=== PATIENT | female | born 1955 | race Caucasian/White ===

== ENCOUNTER 2019-03-10 21:34 | Inpatient (IN) | payer MEDICARE ==
[~2019-03-10] VITALS: Ht 165.1 cm; Wt 54.4 kg
[2019-03-10] MEDS ORDERED: NACL 0.9% 1,000 ML IV SCH (21:36)
--- NOTE | 2019-03-10 21:36 | NUR ---
2133-- PT BIBA TX TO ER BED 8
[2019-03-10 21:37] VITALS: BP 137/65
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
[2019-03-10] MEDS ORDERED: cefTRIAXone 1,000 MG in DEXT 5% MINI-BAG PLUS 50 ML IV ONE (21:40)
--- NOTE | 2019-03-10 22:00 | NUR ---
PT AOX3 (NAME, TIME, PLACE), REMAINS CONFUSED AT THIS TIME. DENIES ANY PAIN. ALL NEEDS MET AT THIS TIME.
[2019-03-10 22:06] LABS: BASOPHILS % (AUTO) 0.2 % (0.0-2.0); EOSINOPHILS % (AUTO) 0.3 % (0.0-4.0); HEMATOCRIT 30.8 % (36-48); HEMOGLOBIN 10.1 g/dL (12.0-16.0); LYMPHOCYTES # (AUTO) 0.7 K/uL (2.5-16.5); LYMPHOCYTES % (AUTO) 8.7 % (20.5-51.1); MEAN CORPUSCULAR HEMOGLOBIN 29 pg (27-31); MEAN CORPUSCULAR HGB CONC 33 g/dL (33-37); MEAN CORPUSCULAR VOLUME 87.5 fL (80-94); MONOCYTES # (AUTO) 0.7 K/uL (0.8-1.0); MONOCYTES % (AUTO) 8.3 % (1.7-9.3); NEUTROPHILS # (AUTO) 6.6 K/uL (1.8-7.7); NEUTROPHILS % (AUTO) 82.5 % (42.2-75.2); PLATELET COUNT (AUTO) 410 K/uL (140-450); RED BLOOD CELL COUNT(AUTO) 3.52 MIL/uL (4.20-5.40); RED CELL DISTRIBUTION WIDTH 15.3 % (11.6-13.7)
[2019-03-10] MEDS ORDERED: cefTRIAXone 1,000 MG VIAL ONE (22:13)
[2019-03-10 22:28] LABS: APPEARANCE,URINE CLEAR (CLEAR); BILIRUBIN,URINE NEGATIVE (NEGATIVE); BLOOD, URINE 1+ (NEGATIVE); COLOR,URINE YELLOW (YELLOW); LEUKOCYTE ESTERASE ,URINE TRACE (NEGATIVE); NITRITE, URINE NEGATIVE (NEGATIVE); UGLUCOSE NEGATIVE (NEGATIVE)
[2019-03-10 22:30] LABS: ANION GAP 9.2 (8-16); CARBON DIOXIDE 29.2 mmol/L (21-32); CREATININE 0.5 mg/dL (0.6-1.3); POTASSIUM 3.4 mmol/L (3.5-5.1)
--- NOTE | 2019-03-10 22:38 | NUR ---
PT TAKEN TO CT AT THIS TIME
[2019-03-10 22:45] LABS: ALBUMIN 2.8 g/dL (3.4-5.0); TOTAL BILIRUBIN 0.2 mg/dL (0.0-1.0)
[2019-03-10 22:47] LABS: BARBITURATE, URINE NEG. ng/ml (NEG <=200); BENZODIAZEPINE, URINE NEG. ng/mL (NEG <=200); CANNABINOID, URINE NEG. ng/mL (NEG <=50); COCAINE, URINE NEG. ng/mL (NEG <=300); OPIATE, URINE NEG. ng/mL (NEG <=2000); PHENCYCLIDINE SCREEN,URINE NEG. ng/mL (NEG <=25)
--- NOTE | 2019-03-10 22:47 | NUR ---
PT BACK FROM CT
[2019-03-10 22:57] LABS: WBC,URINE 0-5 /HPF (0-5)
--- NOTE | 2019-03-10 22:57 | NUR ---
PT LAYING IN BED, RR EVEN AND UNLABORED. VSS, DENIES ANY PAIN. REMAINS MILDLY CONFUSED BUT ABLE TO REORIENT. ALL NEEDS MET AT THIS TIME.
--- NOTE | 2019-03-10 23:14 | NUR ---
DR. FREEMAN BEDSIDE EVALUATING PT
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
--- NOTE | 2019-03-10 23:25 | NUR ---
RECEIVED CALL FROM PT'S LANDLORD OSIEL [phone], STATED THAT HE IS UNABLE TO TAKE PT BACK AT THIS TIME, WAS MADE AWARE THAT PT'S [facility] IS UNABLE TO WARRANTY CLERK PT UNTIL MORNING, WAS GIVEN PT'S DAUGHTER MARIMAR DOS SANTOS'S CONTACT. DR FREEMAN MADE AWARE.
[2019-03-10] MEDS ORDERED: LORazepam 2 MG/ML VIAL IVP ONE (23:40)
--- NOTE | 2019-03-11 00:05 | NUR ---
PER STOPPER MAKER, PT'S DAUGHTER MARIMAR DOS SANTOS [phone] STATED THAT SHE IS UNABLE TO SUPERINTENDENT RECREATION PT AT THIS TIME.
--- NOTE | 2019-03-11 00:28 | NUR ---
PT LAYING IN BED, RR EVEN AND UNLABORED. VSS. ALL NEEDS MET AT THIS TIME.
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
[2019-03-11] MEDS ORDERED: LORazepam 2 MG/ML VIAL IVP PRN (01:40)
[2019-03-11] MEDS ORDERED: ONDANSETRON 4 MG/2 ML VIAL IVP PRN (01:40)
--- NOTE | 2019-03-11 02:01 | NUR ---
PT LAYING IN BED, RR EVEN AND UNLABORED. VSS. ALL NEEDS MET AT THIS TIME.
--- NOTE | 2019-03-11 02:14 | NUR ---
Patient will be admitted to care of DR. COHEN. Admited to MEDSURG OBSERVATION. Will go to room 110B. Belongings list completed. Report to TIMOTHY GALVEZ AND VIDHI GALVEZ.
[2019-03-11 02:20] VITALS: BP 110/82
--- NOTE | 2019-03-11 02:20 | NUR ---
RECIEVED PATIENT FROM ER PER CHERYL .AWAKE ,ALERT .NO RESPIRATORY DISTRESS NOTED.WITH SALINE HEPLOCK ON LEFT AC G20 INTACT AND PATENT ,WALKABLE TO BED ,WITH STABLE V/S ,WITH REDNESS ON SACRAL AREA AND WITH REDNESS AND SWELLING ON LEFT LOWER LEG.MRSA SPECIMEN COLLECTED AND SENT TO LAB.PUT ON FALL PRECAUTION .ADMISSION ASSESSMENT DONE .SANDWICH SERVED .CALL LIGHT WITHIN REACH.WILL CONTINUE TO MONITOR.
--- NOTE | 2019-03-11 04:00 | NUR ---
ASLEEP. NO S/S OF ANY DISCOMFORT NOTED.
--- NOTE | 2019-03-11 06:30 | NUR ---
FERNANDO CARTAGENA OF PT CALLED. TELLING THAT PT WAS ACTING DIFFERENTLY AND THROWING THINGS AT HOME. REQUESTING TO HAVE PT ON HOLD FOR 72 HRS . BUT TOLD HIM THAT PT HAS BEEN COOPERATIVE DURING ETIME SHE WAS ADMITTED ON THE UNIT.
--- NOTE | 2019-03-11 07:20 | NUR ---
SARAH ,NURSE PRACTITIONER OF PT CALLED. AND SAYING THAT PT HAS CERVICAL CA STG 4 METS TO THE BACK. HAD X1 RADIATION FOR LESIONS AND SUPPOSED TO HAVE ANOTHER CONSULT NEXT WWEK FOR RADIATION. TWO WEEKS AGO HAD COLONOSCOPY IN [place] ALSO. SHE IS REQUESTING IF PT CAN HAVE A CM /SS TO BE TRANSFERRED TO HIGHER LEVEL OF CARE. WILL ENDORSE TO AM NURSE.
--- NOTE | 2019-03-11 07:28 | NUR ---
ENDORSED PT IN STABLE CONDITION TO AM NURSE.
--- NOTE | 2019-03-11 07:29 | NUR ---
RECEIVED REPORT FROM CARAVAN PARK AND CAMPING GROUND MANAGER NURSE. PATIENT SITTING IN BED WATCHING TV. ABLE TO AMBULATE TO BATHROOM AND BACK TO BED. AAOX4, CALM, COOPERATIVE, SKIN COLOR APPROPRIATE TO ETHNICITY, WARM TO TOUCH. SKIN INTACT. PULLED OUT IV SITE ON LEFT AC. WILL INSERT NEW IV LINE LATER. RESPIRATIONS EVEN, UNLABORED, ON ROOM AIR. ABDOMEN SOFT, NON-DISTENDED. REVIEWED PLAN OF CARE WITH PATIENT. PATIENT VERBALIZED UNDERSTANDING. SAFETY MEASURES IN PLACE, CALL LIGHT WITHIN REACH. WILL CONTINUE TO MONITOR.
[2019-03-11 08:00] VITALS: BP 119/54
--- NOTE | 2019-03-11 08:10 | NUR ---
PATIENT HAS BEEN SCREENED AND CATEGORIZED MODERATE NUTRITION RISK. PATIENT WILL BE SEEN WITHIN 3-5 DAYS OF ADMISSION. 03/13/19EMELIA ORELLANA [address]
--- NOTE | 2019-03-11 08:45 | NUR ---
DR. COHEN AT BEDSIDE REVIEWING PLAN OF CARE WITH PATIENT. WILL CONTINUE TO MONITOR.
--- NOTE | 2019-03-11 11:27 | NUR ---
SPOKE TO PEPPER PEÑALOZA OF [facility] AT [phone], MADE HER AWARE REGARDING DC PLANNING TO SNF. SHE STATED THAT THIS IS MORE OF A NURSING HOME CASE THAN MEDICAL NECESSITY. WILL FAX ORDERS. SHE ALSO GAVE ME THE LISTS OF FACILITIES THEY ARE CONTRACTED IF PATIENT QUALIFIES.
--- NOTE | 2019-03-11 11:45 | NUR ---
PATIENT WALKING AROUND MST HALLWAYS WITH STEADY GAIT. WILL CONTINUE TO MONITOR.
--- NOTE | 2019-03-11 12:59 | NUR ---
PATIENT SITTING IN BED WITH LUNCH TRAY IN FRONT. INTERMITTENT CONFUSION, DIALED DAUGHTER'S NUMBER FOR PATIENT. WILL CONTINUE TO MONITOR.
--- NOTE | 2019-03-11 13:46 | NUR ---
ELEVATOR INSPECTOR ASSISTED PATIENT TO SHOWER AND BACK TO BED. WILL CONTINUE TO MONITOR.
--- NOTE | 2019-03-11 14:35 | NUR ---
PATIENT DAUGHTER, WAREHOUSE PRODUCTION WORKER AT BEDSIDE TALKING REGARDING PLAN FOR PATIENT. WILL CONTINUE TO MONITOR.
[2019-03-11 16:00] VITALS: BP 121/56
--- NOTE | 2019-03-11 16:30 | NUR ---
PATIENT SITTING IN BED TALKING WITH DAUGHTER AT BEDSIDE AND WORKING ON A PUZZLE. NO DISTRESS NOTED. DENIES ANY PAIN. CONDITION UNCHANGED. WILL CONTINUE TO MONITOR.
--- NOTE | 2019-03-11 18:34 | NUR ---
PATIENT SITTING IN BED WORKING ON A PUZZLE, TALKING WITH SISTER AT BEDSIDE. WILL CONTINUE TO MONITOR.
--- NOTE | 2019-03-11 19:18 | NUR ---
RECIEVED PATIENT AWAKE AND ORIENTED ,WALKABLE, NO ANY DISCOMFORT NOTED AT THIS TIME. FAMILY IS ON BEDSIDE. PLAN OF CARE DISCUSSED AND PT. VERBALIZED UNDERSTANDING. BED IN LOW POSITION ,SIDERAILS UP ,CALL LIGHT WITHIN REACH. WILL CONTINUE TO MONITOR.
--- NOTE | 2019-03-11 19:18 | NUR ---
GAVE REPORT TO SILVERWARE SUPERVISOR NURSE FOR CONTINUITY OF CARE. PATIENT IN STABLE CONDITION.
--- NOTE | 2019-03-11 21:00 | NUR ---
PATIENT,S DAUGHTER EXPRESSED DISAPPOINTMENT ABOUT THE PATIENT .THE DAUGHTER SAID SHE HAVE NOT TAKE CARE HER MOM ANYMORE . THE OTHER STAFF NURSE WITNESSED THE INCIDENT. PATIENT IS CRYING ON THAT TIME. CALM DOWN THE PATIENT AND MAKE HER SECURE ON BED ; CALL LIGHT WITHIN REACH .WILL VISIT THE PATIENT FROM NOW AND THEN.
--- NOTE | 2019-03-11 22:00 | NUR ---
WALKS IN THE HALLWAY ACCOMPANIES BY PRINCE .
[2019-03-11 23:50] VITALS: BP 142/74
--- NOTE | 2019-03-12 | NUR ---
PATIENT TOOK OFF THE PANTS . WALKING AROUND THE ROOM. CONFUSE AND REQUESTING TO GO HOME. COMFORT PATIENT. DRESS PATIENT PROPERLY. WILL CONTINUE TO MONITOR.
--- NOTE | 2019-03-12 02:00 | NUR ---
PATIENT STILL AWAKE ON BED. REQUESTED FOR FOOD .PROVIDED SANDWICH TOLERATED WELL.
--- NOTE | 2019-03-12 03:00 | NUR ---
PATIENT SLEEPING AT THIS TIME. NO DISCOMFORT NOTED.
--- NOTE | 2019-03-12 05:00 | NUR ---
PATIENT RESTING ON BED.NO DISCOMFORT NOTED AT THIS TIME.
--- NOTE | 2019-03-12 06:00 | NUR ---
AMBULATED TO HALLWAY WITH ASSISTANE.
--- NOTE | 2019-03-12 07:25 | NUR ---
ENDORSED TO AM SHIFT NURSE FOR CONTINUITY OF CARE.
--- NOTE | 2019-03-12 07:26 | NUR ---
RECEIVED ENDORSEMENT FROM TUFTER. PATIENT IS AAOX4 WITH INTERMITTENT CONFUSION. RESPIRATIONS ARE EVEN AND UNLABORED ON ROOM AIR. PATIENT DENIES ANY PAIN AT THIS TIME. PLAN OF CARE WAS REVIEWED WITH PATIENT, PATIENT VERBALIZED UNDERSTANDING. SAFETY MEASURES IN PLACE, CALL LIGHT WITHIN REACH.
[2019-03-12 08:00] VITALS: BP 145/58
--- NOTE | 2019-03-12 09:15 | NUR ---
PATIENT IS AMBULATING AROUND UNIT. WALKED PATIENT BACK TO HER ROOM. NO OTHER NEEDS AT THIS TIME. WILL CONTINUE TO MONITOR.
--- NOTE | 2019-03-12 10:00 | NUR ---
DR. COHEN AT BEDSIDE REVIEWING PLAN OF CARE WITH PATIENT. WILL CONTINUE TO MONITOR.
--- NOTE | 2019-03-12 11:00 | NUR ---
ENDORSED PATIENT TO LENNY NAYAK FOR CONTINUITY OF CARE. PATIENT IN STABLE CONDITION.
--- NOTE | 2019-03-12 11:01 | NUR ---
RECEIVED REPORT FROM DAY SHIFT NURSE MADELINE FOR CONTINUITY OF CARE. PT IN STABLE CONDITION. ROOM AIR. CALL LIGHT AT BEDSIDE. PT VERBALIZED UNDERSTANDING HOW TO USE CALL LIGHT. BED IN LOW POSITION. WILL CONTINUE TO MONITOR.
--- NOTE | 2019-03-12 12:13 | NUR ---
PT WALKING AROUND TELE UNIT IN STABLE CONDITION. MOUNTER FLUTES AND PICCOLOS AT SIDE. WILL CONTINUE TO MONITOR.
[2019-03-12] MEDS: ACETAMINOPHEN 325 MG TAB PO PRN ×2 (13:02→21:01)
--- NOTE | 2019-03-12 13:04 | NUR ---
GAVE PRN MEDICATION TYLENOL PER PT REQUEST FOR PAIN LOCATED IN LEFT HIP. CALL LIGHT AT BEDSIDE. BED IN LOW POSITION. WILL CONTINUE TO MONITOR.
--- NOTE | 2019-03-12 13:13 | NUR ---
PEPPER PEÑALOZA FROM [facility] CALLED AND UPDATED PEPPER ON PATIENT STATUS THAT STILL WAITING FOR PSYCH EVAL BY DR OLIVO
--- NOTE | 2019-03-12 13:19 | NUR ---
PEPPER PEÑALOZA [facility] [phone]
--- NOTE | 2019-03-12 15:05 | NUR ---
GAVE PT PEANUT BUTTER AND CRACKERS PER PT REQUEST. PT IN STABLE CONDITION. WILL CONTINUE TO MONITOR.
[2019-03-12 16:00] VITALS: BP 126/60
--- NOTE | 2019-03-12 17:51 | NUR ---
[facility]man Note: Late entry for 03/11/19: I met with patient and patient's daughter Ayala Hawthorne at bedside. They both stated it is not safe for patient to return home upon discharge. Psych evaluation pending. Patient uses a walker to ambulate at home and has a wheelchair and hospital bed that she does not use. Prior to hospital admission patient was living with her roommate/landlord Yonathan in Yonathan's home. Both patient and Ayala stated Yonathan does not want patient to return to his home upon discharge. Patient reported she receives about $1,800 a month from [employer] and pension. Ayala stated she will bring patient's Advance Directive to our hospital. Patient reported she applied for Medi-Raheel in the past and did not qualify at that time due to high income. Patient has not been at a snf before. Ayala inquired if patient could be transferred to a snf upon discharge. I explained to her the difference between skilled and mcc placement. I also explained to her that if patient was to require long term care pharmacist placement she would have to have Medi-Raheel coverage. She verbalized understanding. Ayala stated patient was going to have a new insurance as of April 12, 2019 and was informed by patient's pcp's (,[facility] [phone]) office staff informed her is no longer patient's pcp. Ayala stated she is concern patient does not have a pcp at this time. I offered to call 's office to obtain clarification. She thanked me for my assistance. Ayala reported she has been speaking with CHRIS Vides from [facility] regarding hospice services for patient. [employer] and/or [employer] will follow up as needed. I called and spoke with Meaghan from 's office, she confirmed is still patient's pcp.
--- NOTE | 2019-03-12 17:58 | NUR ---
ASSISTED PT WITH CLEANING AFTER URINATING AND CHANGING SHEETS ON BED. PT IN STABLE CONDITION. BED IN LOW POSITION. CALL LIGHT AT BEDSIDE. WILL CONTINUE TO MONITOR.
--- NOTE | 2019-03-12 19:13 | NUR ---
GAVE REPORT TO SECURITY ASSURANCE SPECIALIST NURSE RAJWINDER FOR CONTINUITY OF CARE. PT IN STABLE CONDITION.
--- NOTE | 2019-03-12 19:13 | NUR ---
REPORT RECEIVED FROM MALINI GALVEZ DAYSHIFT NURSE AT BEDSIDE FOR CONTINUITY OF CARE, PT IN STABLE CONDITION.
--- NOTE | 2019-03-12 20:00 | NUR ---
PT IN BED AOX3NO C/O VOICED AT THIS TIME, ALL REQUESTED NEEDS ATTENDED. V/S FOLLOWS T 99.0 P 93 R 18 B/P 122/57 02 97% ON ROOM AIR.
--- NOTE | 2019-03-12 21:00 | NUR ---
PT NOTED WITH LEFT LOWER LEG SWELLING WITH +1 PITTING EDEMA. PT LEG WAS ELEVATED. PT C/O OF MILD PAIN AND WAS GIVEN TYLEONOL 650MG AND REMINDED TO STAY IN BED AND KEEP LEG ELEVATED. PT VERBALIZED UNDERSTANDING.
--- NOTE | 2019-03-12 21:30 | NUR ---
DR. CARTER COUNSELED PT AT BEDSIDE. BRIEF DISCUSSION ON PT AND PT ORIENTATION WITH DR. CARTER. HE ORDERED AN AMBIEN TO HELP PT SLEEP. PT HAS BEEN GETTING OUT OF BED AND WANTING TO WALK AROUND. PT REDIRECTED TO ROOM SEVERAL TIMES AND REMINDED THAT HE LEG NEEDS TO ELEVATED TO KEEP SWELLING DOWN. PT EXPRESSED CONCERN THAT OSIEL HER LANDLORD WOULD COME AND VISIT HER. PT DOES NOT WANT HIM TO VISIT HER, PT WAS REASSURED THAT IT IS AFTER VISITING HOURS AND THAT OSIEL WOULD NOT BE ALLOWED TO VISIT HER AT THIS TIME. PT EXPRESSED UNDERSTANDING AND WAS REDIRECTED TO HER ROOM.
--- NOTE | 2019-03-12 22:35 | NUR ---
SECURITY CALLED DUE TO PT BEING RESTLESS AND WANTING TO LEAVE. PT WAS REMINDED THAT SHE IS WAITING FOR PLACEMENT, BECAUSE SHE CANNOT GO BACK TO HER CURRENT LIVING SITUATION. PT VERBALIZED UNDERSTANDING, BUT DID NOT WANT TO RETURN TO HER ROOM. SPOKE WITH PT REGARDING HER CONCERNS AND SHE AGREED TO GO BACK TO HER ROOM , BUT SHE WAS ANXIOUS. NEW IV SITE PUT IN PT RIGHT WRIST 22 GUAGE. PT GIVEN ATIVAN IVP . ORDERED AMBIEN ALREADY GIVEN. WILL MONITOR PT FOR SLEEPLESSNESS AND ANXIETY.SITTER AT BEDSIDE.
[2019-03-12] MEDS: ZOLPIDEM 5 MG TAB PO PRN (23:03)
[2019-03-13] VITALS: BP 118/50
--- NOTE | 2019-03-13 | NUR ---
PT SLEEPING SOUNDLY NO S/S OF PAIN OR DISTRESS NOTED. V/S FOLLOWS T 97.7 P 88 R 18 B/P 118/50 02 97% ON ROOM AIR.
--- NOTE | 2019-03-13 07:11 | NUR ---
RECEIVED REPORT FROM REGULATORY COMPLIANCE OFFICER NURSE RAJWINDER FOR CONTINUITY OF CARE. PT IN STABLE CONDITION. RESPIRATIONS EVEN AND UNLABORED. ROOM AIR. IV INTACT AND PATENT. SAFETY MEASURES IN PLACE. CALL LIGHT AT BEDSIDE. BED IN LOW POSITION. WILL CONTINUE TO MONITOR.
[2019-03-13 08:00] VITALS: BP 136/65
--- NOTE | 2019-03-13 09:11 | NUR ---
OSIEL ([facility]) CALLED FOR INFORMATION ON PT. OSIEL WAS INFORMED PT IS FINE AND HE WOULD NEED TO CONTACT THE PT FAMILY FOR ANY OTHER INFORMATION.
--- NOTE | 2019-03-13 10:15 | NUR ---
PT GIVING SELF SPONGE BATH AT BEDSIDE PER PT REQUEST. STANDBY ASSISTANCE AT THIS TIME. PT IN STABLE CONDITION.
--- NOTE | 2019-03-13 12:08 | NUR ---
PT BEING WHEELED AROUND IN A [facility] AREA IN A WHEELCHAIR BY STUDENT NURSE KELSIE. PT IN STABLE CONDITION. WILL CONTINUE TO MONITOR.
[2019-03-13] MEDS: ACETAMINOPHEN 325 MG TAB PO PRN ×2 (13:01→20:19)
--- NOTE | 2019-03-13 13:15 | NUR ---
GAVE PT TYLENOL FOR HIP PAIN PER PT REQUEST. PT VERBALIZED SHE WILL TRY TO TAKE A NAP AT THIS TIME. WILL CONTINUE TO MONITOR. BED IN LOW POSITION. CALL LIGHT AT BEDSIDE.
[2019-03-13 16:00] VITALS: BP 121/68
--- NOTE | 2019-03-13 19:25 | NUR ---
RECEIVED REPORT FROM MALINI RN DAYSHIFT NURSE AT BEDSIDE FOR CONTINUITY OF CARE, PT IN STABLE CONDITION.
--- NOTE | 2019-03-13 19:25 | NUR ---
GAVE REPORT TO GROUND CREWMAN NURSE RAJWINDER FOR CONTINUITY OF CARE. PT IN STABLE CONDITION.
--- NOTE | 2019-03-13 20:03 | NUR ---
PT IN BED ALL FALLS PRECAUTIONS IN PLACE. PT AOX1-2. PT IS CONFUSED MISTAKING BHANU MAGANA FOR PHONE. PT REORIENTED AND EQUIPMENT LIKE THE CALL MAGANA AND PHONE. PT ENCOURAGED TO STAY AND BED AND KEEP LEFT LEG ELEVATED DUE TO SOME PITTING EDEMA IN LOWER LEG AND FOOT, PT VERBALIZED UNDERSTANDING AT THIS TIME. V/S FOLLOWS T 97.3 P 96 R 18 B/P 131/59 02 97% ON ROOM AIR.
[2019-03-13] MEDS: ZOLPIDEM 5 MG TAB PO PRN (20:20)
--- NOTE | 2019-03-13 20:42 | NUR ---
PT UPSET ABOUT THE PHONE NOT WORKING. PT USING [employer] PHONE. PT AGAIN REORIENTED TO EQUIPMENT. PT ASKED STAFF IF SHE CAN USE [employer] PERSONAL CELL PHONE, PT BECAME UPSET THAT SHE WAS NOT ALLOWED TO USE STAFF PHONE AND ASKED FOR SECURITY TO BE CALLED. SECURITY ARRIVED IN ROOM. PT WAS ON THE BED ASKING FOR HER MEDICATION, RN ASKED IF PT IF SHE IS FEELING ANXIOUS AND SHE SAID YES. ATIVAN IVP/PRN TO BE GIVEN.
--- NOTE | 2019-03-13 21:00 | NUR ---
PT GIVEN NEW IV SITE ON LEFT WRIST 20G. PT GIVEN IVP /PRN ATIVAN ORDERED FOR AGITATION.
--- NOTE | 2019-03-13 22:30 | NUR ---
PT IN BED ASLEEP ALL FALLS PRECAUTIONS OBSERVED, NO S/S OF PAIN OR DISTRESS NOTED.
[2019-03-14] VITALS: BP 128/60
--- NOTE | 2019-03-14 00:30 | NUR ---
PT IN BED SLEEPING SOUNDLY, NO S/S OF PAIN OR DISTRESS NOTED. ALL FALLS PRECAUTIONS IN PLACE V/S FOLLOWS T 97.6 P 92 R 18 B/P 128/60 02 98% ON ROOM AIR.
--- NOTE | 2019-03-14 02:30 | NUR ---
PT WOKE UP AND SHE PULLED OUT IV SITE. CANNULA CAME OUT INTACT. PT REQUESTING MORE BLANKETS WHICH WAS GIVEN TO HER. ALL FALLS PRECAUTIONS OBSERVED. PT DRIFTED OFF TO SLEEP AGAIN NO S/S OF PAIN OR DISTRESS NOTED.
[2019-03-14] MEDS: ACETAMINOPHEN 325 MG TAB PO PRN ×3 (06:29→22:03)
--- NOTE | 2019-03-14 06:31 | NUR ---
PT WOKE UP WITH C/O MILD LEFT HIP PAIN. PT GIVEN PO/PRN TYLENOL. WILL MONITOR FOR EFFECT.
--- NOTE | 2019-03-14 07:22 | NUR ---
REPORT GIVEN TO CYRIL RN DAYSHIFT NURSE AT BEDSIDE FOR CONTINUITY OF CARE, PT IN STABLE CONDITION.
--- NOTE | 2019-03-14 07:23 | NUR ---
Received report from pm nurse Snow. Pt asleep in bed, respirations even & nonlabored. Call light within reach.
[2019-03-14 08:00] VITALS: BP 122/60
--- NOTE | 2019-03-14 08:15 | NUR ---
Noticed pt's IV line is missing. Left wrist insertion site dry, no bleeding. Per pt, she pulled out her IV "coz it bothers me." Found IV on floor, cannula intact. Will cont to monitor.
--- NOTE | 2019-03-14 09:45 | NUR ---
Pt requested to have shower. Pt assisted to shower room, privacy provided. Completed shower after 15min, then came back to room. No signs of distress, no c/o discomfort. Call light within reach.
[2019-03-14] MEDS ORDERED: ONDANSETRON 4 MG ODT SL PRN (14:40)
[2019-03-14 16:00] VITALS: BP 126/75
[2019-03-14] MEDS: LORazepam 1 MG TAB PO PRN ×2 (17:33→23:30)
--- NOTE | 2019-03-14 17:33 | NUR ---
Ativan administered for pt c/o feeling generally anxious about her medical & social situation. Active listening & reassurance provided. Call light within reach. Friend Estevan at bedside visiting pt.
--- NOTE | 2019-03-14 17:42 | NUR ---
CONTACT INFORMATION UPDATE: Pt requested to update first contact lens cutter to notify as Estevan Donovan (friend) [phone], & keep Ayala Hawthorne as next of kin. Pt also wanted to include Mayela Caballero (sister) [phone] as 3rd contact lens cutter. Admitting dept notified & will update contact information. Pt states that Ayala (daughter) has copies of her advance directives & DPOA documents & will bring them here tomorrow.
--- NOTE | 2019-03-14 19:20 | NUR ---
Bedside report given to pm nurse Snow. Pt sitting up in bed, no signs of distress. Call light within reach. Fall precautions in place.
--- NOTE | 2019-03-14 19:20 | NUR ---
REPORT RECEIVED FROM CYRIL RN DAYSHIFT NURSE AT BEDSIDE FOR CONTINUITY OF CARE, PT IN STABLE CONDITION.
--- NOTE | 2019-03-14 20:00 | NUR ---
PT IN ROOM ALTERNATING BETWEEN SITTING ON BED AND WALKING AROUND. V/S A FOLLOWS T 99.0 P 96 R 18 B/P 131/68 02 96% ON ROOM AIR. NO C/O VOICED AND ALL REQUESTED NEEDS ATTENDED.
[2019-03-14] MEDS: ZOLPIDEM 5 MG TAB PO PRN (22:02)
--- NOTE | 2019-03-14 22:05 | NUR ---
PT C/O MILD GENERALIZED PAIN, GIVEN TYLENOL AND IS GIVEN REQUESTED AMBIEN 5MG FOR SLEEPING. WILL MONITOR FOR EFFECTIVENESS.
--- NOTE | 2019-03-14 23:35 | NUR ---
PT RESTLESS AND TRYING TO LEAVE, SECURITY CALLED AND SHE WALKED AROUND THE HOSPITAL WITH SECURITY BEFORE RETURNING TO ROOM , WHERE PT ASKED FOR A SNACK AND JUICE. PT IN ROOM TAKING GOWN OFF AND IS NOTED TO BE RESTLESS. PT GIVEN PO/PRN ATIVAN AND SETTLED INTO BED. V/S FOLLOWS T 98.5 P 92 R 18 B/P 115/56 02 98% ON ROOM AIR. ALL FALLS PRECAUTIONS IN PLACE. WILL CONTINUE TO MONITOR FOR SAFETY AND COMFORT. ALL REQUESTED NEEDS ATTENDED.
[2019-03-15] VITALS: BP 115/56
--- NOTE | 2019-03-15 00:31 | NUR ---
PT IN BED LOW BED WITH ALL FALLS PRECAUTIONS IN PLACE. SHE IS SLEEPING SOUNDLY WITH NO S/S OF PAIN OR DISTRESS NOTED.
--- NOTE | 2019-03-15 01:58 | NUR ---
RECEIVED FROM OTHER NOC SHIFT RN, RAJWINDER PATIENT FOR CONTINUITY OF CARE. PT SLEEPING AT THIS TIME BUT AROUSABLE. PLACED IN LOW BED POSITION. RECEIVED WITH NO IV ACCESS. Addendum: 03/15/19 at 0245 by Fatuma Rowland RN AMEND PT TIME RECEIVED TO 0201
--- NOTE | 2019-03-15 02:00 | NUR ---
REPORT GIVEN TO RANDY GALVEZ AT BEDSIDE DUE TO CHANGE OF ASSIGNMENT, PT ASLEEP IN BED ALL FALLS PRECAUTIONS IN PLACE NO S/S OF PAIN OR DISTRESS NOTED. Addendum: 03/15/19 at 0244 by Randy Rowland RN AMEND TIME RECEIVED PT TO 0201 Addendum: 03/15/19 at 0245 by Randy Rowland RN PLS DELETE AMENDMENT ABOVE.
--- NOTE | 2019-03-15 02:45 | NUR ---
PT SLEEPING AT THIS TIME, NO RESPIRATORY DISTRESS, NO COMPLAINTS OF PAIN. WILL CONTINUE TO MONITOR EPISODES OF WANDERING.
--- NOTE | 2019-03-15 03:33 | NUR ---
PT SLEEPING AT HER SIDE, COMFORTABLE, NO COMPLAINTS AT THIS TIME.
[2019-03-15 03:39] VITALS: BP 126/68
--- NOTE | 2019-03-15 04:31 | NUR ---
PT AWAKE, PT VOIDED IN THE BED AND TRICKLED DOWN THE FLOOR. CLEANED BED, CLEANED PT, AND HSKPING CONTACTED
[2019-03-15 04:57] VITALS: BP 117/71
[2019-03-15] MEDS: LORazepam 1 MG TAB PO PRN (05:25)
--- NOTE | 2019-03-15 05:26 | NUR ---
PT IN ROOM TAKING GOWN OFF AND IS NOTED TO BE RESTLESS. PT GIVEN PO/PRN ATIVAN AND SETTLED INTO BED.
--- NOTE | 2019-03-15 06:56 | NUR ---
PT CAUGHT WANDERING TO THE BATHROOM OUTSIDE HER ROOM, ACCOMPANIED PT BACK TO ROOM. PER PT SHE WANTS TO SHOWER NOW THAT'S WHY SHE WANTS TO GO TO THE SHOWER ROOM. EXPLAINED TO HER THAT WE NEED TO ACCOMPANY HER FOR A SHOWER AND THAT SHE SHOULD NOT WANDER W/O ASKING US.
--- NOTE | 2019-03-15 06:59 | NUR ---
PT IN THE ROOM NOW, PT STANDING AND FIXING HER THINGS. PT AWAKE ALERT O X 1. PT I STABLE CONDITION. KEPT EYE ON HER FOR FALL RISK
--- NOTE | 2019-03-15 07:15 | NUR ---
RECEIVED BEDSIDE REPORT FROM NIGHT NURSE. PT IS SITTING UP IN BED AOX4 WITH NO COMPLAINTS OF PAIN OR DISCOMFORT AND HAS NO REQUESTS. ALL SAFETY MEASURES IN PLACE, BED ALARM CHECKED AND WORKING WITH CALL LIGHT EXPLAINED AND IN REACH TO PT. PT'S BREATHING IS UNLABORED AND SYMMETRICAL.
--- NOTE | 2019-03-15 09:08 | NUR ---
SPOKE WITH PATIENT'S NURSE PRACTITIONER SHERON. SHE WAS CURIOUS IF PATIENT IS STILL IN THE HOSPITAL AND IF SHE IS STABLE AND GOING TO BE DISCHARGED TODAY. ANSWERED THESE QUESTIONS FOR HER, SHE INFORMED ME SHE WOULD CHECK IN AGAIN TOMORROW.
--- NOTE | 2019-03-15 09:15 | NUR ---
Pt seen walking outside of room stating that she wants to leave the hospital. Pt redirected back to room & informed that continuous pillowcase cutter is working on finding a permanent residence for her. Pt verbalized understanding & agree with plan of care. Pt back to sitting up in bed, no signs of distress, call light within reach, bed alarm on.
[2019-03-15] MEDS: ACETAMINOPHEN 325 MG TAB PO PRN ×2 (09:46→22:44)
--- NOTE | 2019-03-15 10:46 | NUR ---
PT IS SITTING UP IN BED WITH NO COMPLAINTS OR REQUESTS AND NO OBVIOUS SIGNS OF ACUTE DISTRESS.
--- NOTE | 2019-03-15 12:51 | NUR ---
PT IS SITTING UP IN BED WITH NO OBVIOUS SIGNS OF ACUTE DISTRESS.
--- NOTE | 2019-03-15 14:00 | NUR ---
MOVED PATIENT TO ROOM 121. PATIENT AMBULATED WITH STANDY BY ASSISTANCE. PT HAS STEADY GAIT AND DENIES ANY PAIN. PT HAS NO REQUESTS AT THIS TIME.
--- NOTE | 2019-03-15 15:30 | NUR ---
Dr. Muñoz at bedside to see pt. Per physician, case management associate from [facility] has been trying to contact case aide from [facility]. Chinyere from case management notified & states that Shyann (pt's case aide) will be contacting them back. Physician also notified of pt frequent episode of wandering & stating that she wants to go home. Dr. Quiñonez with order for sitter for elopement risk. Order noted & carried out.
--- NOTE | 2019-03-15 15:55 | NUR ---
03/15/19 RD INITIAL ASSESSMENT COMPLETED PLEASE REFER TO NUTRITION ASSESSMENT UNDER CARE ACTIVITY FOR ESTIMATED NUTRITIONAL NEEDS. 1. CONTINUE REGULAR DIET TOLERATED 2. RD TO FOLLOW-UP 5-7 DAYS, LOW RISK EMELIA ORELLANA RD
[2019-03-15 16:00] VITALS: BP 137/66
[2019-03-15] MEDS ORDERED: ONDA4ODT2 SL (16:05)
[2019-03-15] MEDS ORDERED: LORA-476 PO (16:05)
[2019-03-15] MEDS ORDERED: ACET-1182 PO (16:05)
[2019-03-15] MEDS ORDERED: ZOLP5TAB1 PO (16:05)
--- NOTE | 2019-03-15 16:22 | NUR ---
PT SITTING UP IN BED WORKING ON PUZZLE. PT HAS NO OBVIOUS SIGNS OF DISTRESS AND HAS NO REQUESTS. BREATHING IS UNLABORED.
--- NOTE | 2019-03-15 16:38 | NUR ---
LEFT A MESSAGE FOR BESSIE GONSALES FOR HER MEDICAL TO BE APPLIED
--- NOTE | 2019-03-15 17:00 | NUR ---
RECEIVED A PHONE CALL FROM THE PATIENT'S ROOMMATE BY THE NAME OF OSIEL. INFORMED HIM I COULD NOT DISCUSS THE CONDITION OR ANY DETAILS OF THE PATIENT WITH HIM. PATIENT THEN ASKED QUESTIONS REGARDING PATIENT'S CASE MANAGEMENT AND I INFORMED HIM I COULD NOT HELP HIM WITH ANY OTHER DETAILS.
--- NOTE | 2019-03-15 17:00 | NUR ---
PT IS SITTING UP IN BED FREE OF OBVIOUS SIGNS OF DISTRESS AND HAS NO REQUESTS.
--- NOTE | 2019-03-15 18:25 | NUR ---
PT IS SITTING UP IN BED FREE OF OBVIOUS SIGNS OF DISTRESS AND HAS NO REQUESTS.
--- NOTE | 2019-03-15 19:10 | NUR ---
RECEIVED BEDSIDE REPORT FROM DAY SHIFT NURSE. PATIENT IS IN BED ALERT, AWAKE, AND COOPERATIVE. DENIES PAIN. RESPIRATION EVEN UNLABORED ON ROOM AIR. NO DISTRESS NOTED. SKIN IS WARM AND DRY. SITTER AT THE BEDSIDE. PLAN OF CARE WAS REVIEWED AND DISCUSSED. ALL SAFETY MEASURES IN PLACE. BED IS IN LOW POSITION. BED ALARM ON. CALL LIGHT WITHIN REACH AND VERBALIZES ITS USE. WILL CONTINUE TO MONITOR.
--- NOTE | 2019-03-15 19:20 | NUR ---
GAVE BEDSIDE REPORT PT IN STABLE CONDITION AT THIS TIME
--- NOTE | 2019-03-15 20:00 | NUR ---
INITIAL ASSESSMENT DONE. VITALS WERE TAKEN. PATIENT IS IN STABLE CONDITION. NO DISTRESS NOTED. SITTER AT BEDSIDE. WILL CONTINUE TO MONITOR
--- NOTE | 2019-03-15 21:20 | NUR ---
PATIENT COMPLAINED OF NOT ABLE TO FALL ASLEEP. PRN AMBIEN ADMINISTERED PER ORDER. WILL CONTINUE TO MONITOR.
[2019-03-15] MEDS: ZOLPIDEM 5 MG TAB PO PRN (21:21)
--- NOTE | 2019-03-15 22:26 | NUR ---
PATIENT IN BED WATCHING TV. RESPIRATION EVEN UNLABORED ON ROOM AIR. NO DISTRESS NOTED. WILL CONTINUE TO MONITOR.
--- NOTE | 2019-03-15 22:40 | NUR ---
PATIENT COMPLAINED OF LEG PAIN 4/10. PRN PAIN MED ADMINISTERED PER ORDER. WILL CONTINUE TO MONITOR
[2019-03-16] VITALS: BP 128/72
--- NOTE | 2019-03-16 | NUR ---
VITALS WERE TAKEN. PATIENT IS IN STABLE CONDITION. SITTER AT BEDSIDE. WILL CONTINUE TO MONITOR.
--- NOTE | 2019-03-16 02:00 | NUR ---
PATIENT SLEEPING RESPIRATION EVEN UNLABORED ON ROOM AIR. NO DISTRESS NOTED. SITTER AT BEDSIDE. WILL CONTINUE TO MONITOR
--- NOTE | 2019-03-16 04:00 | NUR ---
PATIENT WOKE UP WITH COMPLAINED OF 4/10 LEG PAIN. PRN PAIN MED ADMINISTER PER ORDER. WILL CONTINUE TO MONITOR.
[2019-03-16] MEDS: ACETAMINOPHEN 325 MG TAB PO PRN ×4 (04:19→20:30)
--- NOTE | 2019-03-16 07:23 | NUR ---
ENDORSED PATIENT TO DAY SHIFT NURSE PATIENT IS IN STABLE CONDITION. NO DISTRESS NOTED.
--- NOTE | 2019-03-16 07:24 | NUR ---
RECEIVED BEDSIDE REPORT FROM NIGHT NURSE. PT IS SITTING UP IN BED AOX4 WITH NO COMPLAINTS OR REQUESTS. PT IS IN POSITIVE AFFECT AT THIS TIME SMILING. PT HAS NO IV SITE AT THIS TIME. ALL SAFETY MEASURES IN PLACE AND CALL LIGHT WITHIN REACH.
--- NOTE | 2019-03-16 07:55 | NUR ---
PT IS SITTING UP IN BED WORKING ON [employer], PT HAS NO OBVIOUS SIGNS OF DISTRESS AND ONLY REQUESTS IF I COULD CALL [facility] AND REQUEST A DIFFERENT BREAKFAST. PHONED THEM AND REQUESTED NEW MEAL FOR PATIENT PER HER REQUEST.
[2019-03-16 08:00] VITALS: BP 125/70
--- NOTE | 2019-03-16 08:47 | NUR ---
SPOKE WITH ANGIE WHO WAS WONDERING HOW PATIENT WAS DOING AND HAD QUESTIONS REGARDING IF THE PATIENT WAS TRANSFERING TO [facility]. INFORMED HER SHE WAS NOT AND TOLD HER I WOULD DISCUSS WITH THE PATIENT AND HER ANY PLACEMENT WHEN NEW NEWS COMES UP AND KEEP HER UP TO DATE. ANGIE STATES SHE HAS NO FURTHER QUESTIONS, INFORMED PT I SPOKE TO ANGIE WELL ABOUT THIS ALL.
--- NOTE | 2019-03-16 09:44 | NUR ---
PT RESTING IN BED AT THIS TIME WORKING ON PUZZLE. ADMINISTERED PRN PAIN MEDICATION. PT HAS NO OTHER REQUESTS, AND NO OBVIOUS SIGNS OF DISTRESS.
--- NOTE | 2019-03-16 11:21 | NUR ---
PT RESTING IN BED USING PHONE. NO OBVIOUS DISTRESS AND NO REQUESTS AT THIS TIME.
--- NOTE | 2019-03-16 12:30 | NUR ---
PT SITTING IN BED WITH NO OBVIOUS SIGNS OF DISTRESS.
--- NOTE | 2019-03-16 14:00 | NUR ---
PT SLEEPING IN BED, BREATHING SYMMETRICAL AND UNLABORED.
[2019-03-16] MEDS: LORazepam 1 MG TAB PO PRN (15:58)
[2019-03-16 16:00] VITALS: BP 127/76
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
--- NOTE | 2019-03-16 16:05 | NUR ---
ADMINISTERED PRN ATIVAN DUE TO PATIENT STATING SHE IS SAD AND ANXIOUS. PT AGREEABLE TO TRYING THE ATIVAN TO HELP WITH HER ANXIETY. PT CRYING AND STATING SHE IS JUST WORRIED WHAT WILL HAPPEN TO HER HOUSING. INFORMED HER CASE MANAGEMENT IS WORKING ON IT. ALSO AT THIS TIME DIO WITH SOCIAL WORK CAME AND SPOKE TO US AND INFORMED US OF POSSIBLE BOARDING CARE INTERVIEW TOMORROW AT 1100 FOR PLACEMENT.
--- NOTE | 2019-03-16 16:57 | NUR ---
PT IS SITTING UP IN BED SPEAKING TO VISITOR AT BEDSIDE. PT HAS NO OBVIOUS SIGNS OF DISTRESS.
--- NOTE | 2019-03-16 19:12 | NUR ---
GAVE BEDSIDE REPORT TO NIGHT NURSE. PT IN STABLE CONDITION.
--- NOTE | 2019-03-16 19:13 | NUR ---
RECEIVED BEDSIDE REPORT FROM LEE GALVEZ. A/O X4. ABLE TO MAKE NEEDS KNOWN. DISCUSSED PLAN OF CARE. VERBALIZED UNDERSTANDING. HAS HX OF DEMENTIA. FORGETFUL. ROOM AIR. NO SIGNS OF RESP DISTRESS. STD PRECAUTIONS. FALL PRECAUTIONS IN PLACE. YELLOW, GOWN, SOCKS, SIGN ABOVE DOOR. FULL CODE. AMBULATORY. STEADY GAIT. STANDBY ASSIST. CONTINENT. SKIN INTACT. EDEMA TO BLE. NO IV IN PLACE. NO SITTER AT BEDSIDE. BED IN LOW POSITION. CALL LIGHT WITHIN REACH. WILL CONTINUE TO MONITOR.
--- NOTE | 2019-03-16 20:00 | NUR ---
PT AWAKE WALKING AROUND UNIT. STANDBY ASSIST. STEADY GAIT. ORIENTED BACK TO BED. WILL CONTINUE TO MONITOR.
--- NOTE | 2019-03-16 22:00 | NUR ---
PT AWAKE RESTING IN BED SEMI FOWLERS WATCHING TV. NO SIGNS OF DISTRESS. WILL CONTINUE TO MONITOR.
--- NOTE | 2019-03-16 23:15 | NUR ---
PT AWAKE. ALERT. WALKING AROUND MST UNIT. EXPLAINED SHE NEEDED TO BE IN HER ROOM FOR SAFETY MEASURES. ORIENTED BACK TO BED. WILL CONTINUE TO MONITOR.
[2019-03-17] VITALS: BP 120/67
[2019-03-17] MEDS: ACETAMINOPHEN 325 MG TAB PO PRN ×3 (01:06→18:18)
--- NOTE | 2019-03-17 01:14 | NUR ---
ASSISTED PT BACK INTO BED. REQUESTED WARM BLANKET. REQUESTED PAIN MEDS. ASSESSED. 3/10 ON PAIN SCALE. GIVEN TYLENOL PRN. EDUCATED ON SIDE EFFECTS. VERBALIZED UNDERSTANDING. TOLERATED WELL. WILL CONTINUE TO MONITOR.
--- NOTE | 2019-03-17 02:48 | NUR ---
PT AWAKE. A/O X4. REQUESTED TO GO ON WALK AROUND UNIT. INSTRUCTED THAT SHE CAN WALK WITH STANDBY ASSIST AROUND UNIT. AMBULATORY. STEADY GAIT. NO SIGNS OF RESP DISTRESS. ABLE TO MAKE NEEDS KNOWN. WILL CONTINUE TO MONITOR.
--- NOTE | 2019-03-17 03:00 | NUR ---
PT WONDERED OFF TOWARDS [employer] AND Alerts. DIRECTED BACK TO [facility] PT ROOM 121A. COOPERATIVE. NO SIGNS OF DISTRESS. PT BACK IN BED. REQUESTED NEW WARM BLANKETS. BED IN LOW POSITION. CALL LIGHT WITHIN REACH. WILL CONTINUE TO MONITOR.
--- NOTE | 2019-03-17 04:39 | NUR ---
PT SLEEPING IN BED. EASILY AROUSABLE. ABLE TO MAKE NEEDS KNOWN. NO RESP DISTRESS. NO SOB. WILL CONTINUE TO MONITOR.
--- NOTE | 2019-03-17 05:20 | NUR ---
PT WALKED OUT OF UNIT THROUGH EMERGENCY EXIT. STATED SHE WAS TRYING TO GO HOME. SHE STATED THAT SHE COULD HAVE TAKEN THE BUS HOME. ASSISTED HER BACK ONTO THE UNIT AND INTO HER ROOM. NO SIGNS OF RESP DISTRESS. STEADY GAIT. WILL CONTINUE TO MONITOR.
--- NOTE | 2019-03-17 06:33 | NUR ---
WILL ENDORSE PT TO DAYSHIFT RN. PT IN STABLE CONDITION. NO SOB. NO SIGN OF DISTRESS. ABLE TO MAKE NEEDS KNOWN. BED IN LOW POSITION. BED ALARM ON. FALL PRECAUTIONS IN PLACE. CALL LIGHT WITHIN REACH. WILL CONTINUE TO MONITOR.
--- NOTE | 2019-03-17 07:25 | NUR ---
RECEIVED REPORT FROM DUPLIGRAPH OPERATOR NURSE FOR CONTINUITY OF CARE. PT IN STABLE CONDITION. NO IV ACCESS, AWARE. SAFETY MEASURES IN PLACE. CALL LIGHT AT BEDSIDE. BED IN LOW POSITION. BED ALARM ON.
[2019-03-17 08:00] VITALS: BP 123/55
--- NOTE | 2019-03-17 08:13 | NUR ---
Informed by Kaden from [facility] through email stating that patient is not Medi-Raheel eligible due to income. Salvager/Chief Medical Physicist will follow up as needed.
--- NOTE | 2019-03-17 09:15 | NUR ---
PT LYING IN BED IN STABLE CONDITION. WILL CONTINUE TO MONITOR.
--- NOTE | 2019-03-17 11:33 | NUR ---
PT WALKING AROUND ROOM IN STABLE CONDITION. WILL CONTINUE TO MONITOR.
--- NOTE | 2019-03-17 13:11 | NUR ---
PATTY began looking for Assisted Living/Board and Care for patient. [facility] � [phone] � Ivis Cardoza stated that no rooms are available. [facility] � [phone] � Marilee stated there are no beds available for 65+ years of age. [facility] � [phone] � Left Yasmin in Admissions a voicemail. [facility] � [phone] � Left Admissions voicemail. [facility] � [phone] � Phone number disconnected. [facility] � Yasmin stated that [facility] $3630. [facility] � [phone] � Unavailable. [facility] � Annika stated that [facility] $2925 [facility] � [phone] � Unavailable. [facility] � [phone] � Left Marleen a voicemail. [facility] � [phone] � No beds available. [facility] � [phone] � Hortensia stated that Assisted Living Shared Room is $2640 PATTY met with Analilia Donovan for follow up regarding discharge planning. PATTY explained current situation in finding placement. PATTY made Analilia aware that board and care would meet with patient today for possible placement. PATTY met with Kirsty from [facility] [phone] in [facility]. Per Kirsty, she has spoken to patient and patient�s friend and they both agreed that patient would accept a room in this facility. Kirsty is willing to accept patient. APTTY provided clinical packet per Director�s authorization for continuity of care. ANABELA Boothe will be following up with patient�s insurance as well as Lan from Palliative Care with [facility] regarding authorization for patient to discharge to board and care. PATTY/ANABELA will follow up as needed.
--- NOTE | 2019-03-17 13:45 | NUR ---
PT WALKING AROUND ROOM STRAIGHTENING HER BED LINEN IN STABLE CONDITION. WILL CONTINUE TO MONITOR.
--- NOTE | 2019-03-17 15:32 | NUR ---
CALLED [facility] [phone] SPOKE WITH PEPPER NOTIFIED HER THAT WE FOUND PLACEMENT AT [facility] AND PROVIDED HER WITH THE ADDRESS NAME [facility] [address] [facility] [address] PHONE NUMBER [phone] . PER PEPPER THERE IS IPA IN [facility] AND CAN TRANSFER THE CARE TO ANY ONCOLOGIST, HOSPICE AND PALLIATIVE CARE. NOTIFIED NORA(PALLIATIVE CARE ) [phone] TITA FROM HOSPICE THAT PATIENT WILL BE RESIDE TO [facility] PER TITA AND LORENE THEY CAN NOT GO TO [facility] BECAUSE OF THE DISTANCE. CALLED DR DOUGLASS'S ONCOLOGIST OFFICE SPOKE WITH OMER AND NOTIFIED HER PATIENT IS MOVING TO [facility] BUT [facility] FROM THE BOARDING CARE WILL PROVIDE TRANSPORT TO THE OFFICE TO GET THE TREATMENT AND WILL DISCUSS THE CASE WITH DR DOUGLASS WHETHER TO CONTINUE OR TRANSFER THE CARE TO OTHER ONCOLOGIST WHO IS CLOSE TO THE AREA WHERE SHE LIVES . PER [facility] SHE CAN NOT TAKE PATIENT TODAY SHE WILL COME TO PICK HER UP TOMORROW
[2019-03-17 16:00] VITALS: BP 127/74
--- NOTE | 2019-03-17 16:41 | NUR ---
PT WALKED OUT MST SIDE DOOR GOING TOWARDS [facility]. SECURITY WAS ABLE TO CATCH UP WITH PT AND BRING HER BACK TO HER ROOM. PT IN STABLE CONDITION. PT WAS REDIRECTED. BED IN LOW POSITION. CALL LIGHT AT BEDSIDE. WILL CONTINUE TO MONITOR.
--- NOTE | 2019-03-17 18:01 | NUR ---
PT LYING IN BED SLEEP AT THIS TIME. BED IN LOW POSITION. BED ALARM ON. CALL LIGHT AT BEDSIDE.
--- NOTE | 2019-03-17 19:31 | NUR ---
PT FAMILY REMAINS AT BEDSIDE. NO COMPLAINTS, DENIES PAIN. WILL CONTINUE TO MONITOR.
--- NOTE | 2019-03-17 19:32 | NUR ---
RECD. RESTING IN BED, AWAKE, A/OX1. WATCHING TV. RESPIRATION EVEN AND UNLABORED. REORIENTED TO HOSPITAL SETTING. PLAN OF CARE DISCUSSED. NEEDS REINFORCEMENT. DENIES PAIN 0/10.
--- NOTE | 2019-03-17 21:00 | NUR ---
SLEEPING COMFORTABLY IN BED.
--- NOTE | 2019-03-17 21:30 | NUR ---
Patient's Plan of Care was discussed and reviewed with HAIR DRYER: CARRIE MCNALLY
--- NOTE | 2019-03-17 23:00 | NUR ---
AWAKE, TOOK OFF GOWN, STATED SHE IS FEELING HOT. USED THE BSC. PUT HER CLOTHES IN A BAG. PUT BACK HER GOWN. ADVISED TO GO BACK TO BED. WENT TO THE BATHROOM STATED I NEED TO GO TO THE BATHROOM AGAIN.
[2019-03-17] MEDS: LORazepam 1 MG TAB PO PRN (23:15)
--- NOTE | 2019-03-17 23:15 | NUR ---
WITH ANXIETY, MEDICATED WITH ATIVAN 1 MG. PO.
[2019-03-18] VITALS: BP 125/69
--- NOTE | 2019-03-18 00:15 | NUR ---
NO ANXIETY, SLEEPING COMFORTABLY IN BED.
--- NOTE | 2019-03-18 02:00 | NUR ---
WAKES UP AND WENT TO BR. BACK TO BED AND ADVISED TO GO BACK TO SLEEP, COOPERATIVE.
--- NOTE | 2019-03-18 04:15 | NUR ---
AWAKE, GET OUT OF BED AND USE BSC.
[2019-03-18] MEDS: LORazepam 1 MG TAB PO PRN (05:00)
--- NOTE | 2019-03-18 05:00 | NUR ---
STARTED FIXING HER CLOTHES. WITH ANXIETY, MEDICATED WITH ATIVAN 1 MG. PO.
--- NOTE | 2019-03-18 05:47 | NUR ---
NO ANXIETY, SLEEPING COMFORTABLY IN BED.
--- NOTE | 2019-03-18 07:00 | NUR ---
AWAKE, WANTS TO HAVE A SHOWER. ADVISED TO TAKE IT AFTER BREAKFAST. COOPERATIVE. WILL ENDORSE TO AM NURSE FOR MONITORING.
--- NOTE | 2019-03-18 07:15 | NUR ---
RECEIVED REPORT FROM INTENSIVE CARE AMBULANCE PARAMEDIC NURSE FOR CONTINUITY OF CARE. PT IN SHOWER AT THIS TIME. KNOCKED ON DOOR PT OPENED THE DOOR TO VERBALIZE OKAY. PT IN STABLE CONDITION. RESPIRATIONS EVEN AND UNLABORED. SKIN INTACT. SAFETY MEASURES IN PLACE. WILL CONTINUE TO MONITOR.
--- NOTE | 2019-03-18 07:15 | NUR ---
FOUND PATIENT NOT IN THE ROOM, SEARCH AND FIND PATIENT IN THE SHOWER. ENDORSED TO AM SHIFT NURSE FOR CONTINUITY OF CARE.
[2019-03-18 08:00] VITALS: BP 132/79
--- NOTE | 2019-03-18 08:44 | NUR ---
RECEIVED REPORT FROM BROADBAND ENGINEER NURSE FOR CONTINUITY OF CARE. PT IN SHOWER AT THIS TIME. KNOCKED ON DOOR PT OPENED THE DOOR TO VERBALIZE OKAY. PT IN STABLE CONDITION. RESPIRATIONS EVEN AND UNLABORED. SKIN INTACT. SAFETY MEASURES IN PLACE. WILL CONTINUE TO MONITOR. Addendum: 03/18/19 at 0846 by Tiara Mosqueda RN [id number] NOTE
[2019-03-18] MEDS: ACETAMINOPHEN 325 MG TAB PO PRN ×2 (09:05→14:03)
--- NOTE | 2019-03-18 09:51 | NUR ---
FUR CLEANER received a phone call from Devi, sister of patient. Devi had questions regarding discharge planning and placement. FUR CLEANER provided phone number and address to board and care. Devi was in agreement with patient discharging to board and care.
--- NOTE | 2019-03-18 11:25 | NUR ---
SW was informed by CM that patient will be discharging today by 3:00PM-4:00PM and board and care will be providing transportation. SW went to meet with patient to inform her of discharge and confirmed that she was in agreement with discharge plan. Patient verbalized excitement and confirmed that she will be discharging to board and care. Patient advised that she would like her sister Mayela, friend Analilia, and daughter Ayala notified of her discharge and location. SW called Analilia regarding discharge plan and was in agreement. Analilia was provided board and care information. SW attempted to call Ayala multiple times and left a voicemail regarding detailed information and also provided call back information if needed. SW called Mayela and also informed her of board and care information. Mayela was in agreement with discharge. PATTY spoke with nurse regarding discharge plan. Nurse is aware of discharge. PATTY spoke with ANABELA Boothe who reported that she will be addressing medical needs for continuity of care. PATTY/CM will follow up as needed.
--- NOTE | 2019-03-18 13:07 | NUR ---
PT LYING IN BED READING MAGAZINES IN STABLE CONDITION. WILL CONTINUE TO MONITOR. BED IN LOW POSITION. BED ALARM ON. CALL LIGHT AT BEDSIDE.
--- NOTE | 2019-03-18 14:15 | NUR ---
CALLED [facility] SOCIAL SERVICE PRACTITIONER (AGING AND ADULT SERVICES) AND LEFT MESSAGE FOR PT DISCHARGE LOCATION: [facility], [address] [facility] [place] [address]
--- NOTE | 2019-03-18 14:20 | NUR ---
GAVE DISCHARGE INSTRUCTIONS PT VERBALIZED UNDERSTANDING. ID BAND REMOVED. PT WAS WHEELED TO LOBBY IN WHEELCHAIR WITH ALL BELONGINGS IN STABLE CONDITION.
== END 2019-03-18 14:30 | disposition home or self-care (01) | DRG 918 ==
LOC: MED 21:34 → EDBD 21:34 → MTU 03-11 01:47 → OBSVTOIN 03-13 14:28 → MTU 03-15 11:29
PROVIDERS: ADMIT Internal Medicine; ATTEND Internal Medicine
DX: T40.602A Poisoning by unspecified narcotics, intentional self-harm, initial encounter (principal); C79.31 Secondary malignant neoplasm of brain; C79.51 Secondary malignant neoplasm of bone; E44.1 Mild protein-calorie malnutrition; T14.91XA Suicide attempt, initial encounter; F03.90 Unspecified dementia, unspecified severity, without behavioral disturbance, psychotic disturbance, mood disturbance, and anxiety; C53.9 Malignant neoplasm of cervix uteri, unspecified; F11.10 Opioid abuse, uncomplicated; G89.4 Chronic pain syndrome; D64.9 Anemia, unspecified; E11.9 Type 2 diabetes mellitus without complications; I10 Essential (primary) hypertension; Y92.89 Other specified places as the place of occurrence of the external cause
CPT/HCPCS: 96365; 96375; 99285; G0378; 36415; 70450; 71045; 80053; 80305; 81001; 82550; 82948; 83605; 84484; 85025; 87040; 87081; 87086; 93005; 97116; 97161-GP; 97530; J0696; J2060; J7060